=== PATIENT | male | born 1980 | race African-American/Black ===

== ENCOUNTER → 2019-07-22 | Outpatient (CLI) | payer OTHER ==
[~2019-07-22] MED LIST: CYCL10TA2 PO; GABA600T7 PO; HYDR-2761 PO; MELO15TA23 PO
--- NOTE | 2019-07-22 22:59 | PAIN ---
DATE OF SERVICE: 07/22/2019 INITIAL CONSULTATION FOR PAIN CLINIC CHIEF COMPLAINT: Low back and left lower extremity pain. HISTORY OF PRESENT ILLNESS: This is a 39-year-old male who presents with history of pain in low back and left lower extremity for about 10 years. 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 The patient reports that he is doing stretching exercises, doing strengthening on his own. Reports the pain is in the low back and into the left lower extremity, mostly in the anterior groin and posterior gluteus and low back radiating to the lateral thigh and medial lower leg as well. The patient reports it is constant, sharp, stabbing, throbbing, shooting with numbness sensation into the leg, intermittent in intensity, worse with activity with some fatigability of the left leg as well, but not on the right. The patient reports it awakens him up several times a night from sleep, does not affect his bowel or bladder control, but does affect his ability to walk with significant fatigability. The patient has been taking cyclobenzaprine, hydrocodone, meloxicam, as well as gabapentin, all of which do decrease the pain, but only minimally. The patient reports no loss of motor function, but he has again tired sensation in the left leg. The patient rates his disability from 0-10, 10 being the worst, is a 10 with family, home responsibilities, recreation, social activity, occupation, sexual behavior, self-care, and life support activities. The patient did have a CT scan of the lumbar spine showing a bulging disk at L4-L5 with central canal narrowing and bilateral neural foraminal stenosis. MRI was ordered and is pending at the time of dictation. PAST MEDICAL HISTORY: Significant for arthritis and gout. Otherwise, the patient has been in good health with some minor hearing loss. PREVIOUS SURGERY: Includes left foot surgery in 2016, a vasectomy in 2014. CURRENT MEDICATIONS: Include cyclobenzaprine, hydrocodone, meloxicam, gabapentin. ALLERGIES: The patient has no known medical allergies. SOCIAL HISTORY: The patient does not smoke; drinks alcohol occasionally, maybe once a month; is and lives with his spouse, lives locally in [place], [place]. 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 FAMILY HISTORY: Significant for no major medical problems or conditions that he is aware of. REVIEW OF SYSTEMS: The patient's review of systems is positive for those items mentioned in history of present illness. All systems reviewed and otherwise negative. It is complete, full, and well documented on the patient's chart. PHYSICAL EXAMINATION: VITAL SIGNS: The patient's blood pressure is 132/93, pulse 79, respirations 18, temperature 98.0 degrees Fahrenheit, height is 73 inches, weighs 197 pounds. GENERAL: The patient is awake, alert, oriented, appropriate, very pleasant demeanor. HEENT: Shows normocephalic, atraumatic. Extraocular movements are intact and symmetrical. Oral cavity: Mucous membranes moist and pink. Dentition is intact. NECK: Shows anterior throat supple without palpable lymphadenopathy noted. Swallow reflex symmetrical. Neck shows full rotational motion of the cervical spine without difficulty. CHEST: Shows normal on inspection. Breath sounds clear to auscultation bilaterally. HEART: Shows S1, S2 clear. No murmurs auscultated. ABDOMEN: Soft, nontender, nondistended. No palpable organomegaly is noted. No rebound or guarding demonstrated. BACK: Shows spine grossly in the midline. Normal-appearing thoracic kyphosis and lumbar lordotic curvature. Lumbar paraspinous muscle shows symmetrical on inspection; on palpation shows some moderate tenderness diffusely, but only diffusely in the lower lumbar distribution on the left side only without trigger points, without atrophy or hypertrophy. No asymmetry. No tenderness over the spinous processes, sacrum, or sacroiliac regions with palpation. The patient's back shows good rotational motion both laterally greater than 10 degrees right and left as well as extension greater than 10 degrees, forward flexion 45 degrees without pain reported. EXTREMITIES: Lower extremities show deep tendon reflexes 2+ in the patellar, 1+ tendo-calcaneus tendons. Motor exam is strong with approximately 4 on a scale of 5 with left dorsiflexion, extension; 5/5 on the right. Peripheral pulses are 1+ posterior tibial. Lower extremities are warm and dry to touch, equal in color and appearance. No peripheral edema is noted bilaterally. The patient shows a negative straight leg raise bilaterally. Gaenslen's and William's maneuvers are negative as well. The patient is able to stand, stand on his toes without significant difficulty or loss of balance, has a normal-appearing gait for short distance in the office today, not using any assistive device, such as canes or walkers to ambulate. SKIN: Shows warm and dry, good turgor. No edema. No sores, rashes, or bruising throughout. IMPRESSION: 1. This is a 39-year-old male with approximately 10-year history of increasing pain, low back, left lower extremity in a radicular fashion as noted. 2. Arthritis. 3. MRI scan of lumbar spine as noted. PLAN: Options were discussed with the patient, including conservative medical management, physical therapies, interventional techniques, and he would like to proceed with interventional techniques. We discussed a lumbar epidural steroid injection using description as well as anatomical models to describe the procedure. The patient will wait for preauthorization with his insurance provider. In the meantime, we will try Medrol Dosepak. The patient was given instruction as well as side effects to be aware of with the medication. We will have him return once this is completed and a preauthorization for lumbar epidural steroid injection at that time at the L4-L5 level, translaminar approach. FAYE RESTREPO MD DR: MILLI/aide JOB#: [id number] / [id number]
== END | disposition home or self-care (01) ==
LOC: PNCL 08:19
PROVIDERS: ATTEND Anesthesiology
DX: M79.605 Pain in left leg (principal); M54.5 Low back pain; M40.294 Other kyphosis, thoracic region; M40.46 Postural lordosis, lumbar region; M19.90 Unspecified osteoarthritis, unspecified site; M10.9 Gout, unspecified; Z79.891 Long term (current) use of opiate analgesic; Z79.899 Other long term (current) drug therapy
CPT/HCPCS: G0463

== ENCOUNTER → 2019-08-02 | Outpatient (CLI) | payer OTHER ==
[~2019-08-02] MED LIST changes: +IOHEXOL 180 MG/ML 10 ML VIAL. ONE; +methylPREDNISolone ACETATE 40 MG/ML VIAL. ONE; +methylPREDNISolone ACETATE 80 MG/ML VIAL. ONE
--- NOTE | 2019-08-02 10:52 | PAIN ---
DATE OF SERVICE: 08/02/2019 PROGRESS NOTE FOR PAIN CLINIC DIAGNOSES: Lumbar radiculopathy with lumbar degenerative disk disease. HISTORY OF PRESENT ILLNESS: The patient is a 39-year-old male, who returns for followup status post preauthorization and initial evaluation for lumbar epidural steroid injection. The patient reports still significant pain in low back and left lower extremity, posterior gluteus, lateral thigh, lateral anterior thigh, medial lower leg on the left side only, worse with walking, standing, changing positions. The patient reports tingling, stabbing, aching, sharp, dull, tight, shooting, radiating in the left leg. The patient was awaiting preauthorization, he has obtained that now, would like to proceed. The patient describes his pain over the past week is a 10 on a scale of 10 at its worst, 8 on average and 8 at its least and is an 8 today. The patient reports no new motor or sensory deficits, no new bowel or bladder incontinence, still better with sitting or lying down, it does not awaken him from sleep at night. PHYSICAL EXAMINATION: VITAL SIGNS: The patient's blood pressure 126/62, pulse 80, respirations are 16, temperature 97.5 degrees Fahrenheit. Height is 73 inches, weight is 202 pounds. GENERAL: The patient is awake, alert, oriented, appropriate, very pleasant demeanor. HEENT: Shows normocephalic, atraumatic. Extraocular movements are intact and symmetrical. Oral cavity: Mucous membranes moist and pink; dentition is intact. NECK: Shows anterior throat supple without palpable lymphadenopathy noted. Swallow reflex symmetrical. CHEST: Shows normal on inspection. Breath sounds clear to auscultation bilaterally. HEART: Shows S1, S2 clear. No murmurs auscultated. ABDOMEN: Soft, nontender and nondistended. BACK: Shows spine grossly in the midline. Lumbar paraspinous muscle shows symmetrical on inspection, with palpation shows some moderate tenderness diffusely bilaterally, but only diffusely without radiation. EXTREMITIES: The patient's lower extremities show deep tendon reflexes 2+ in the patellar, 1+ in the tendo-calcaneus tendons. Motor exam is strong with 4 on a scale of 5 with left dorsiflexion and extension, 5/5 on the right. Peripheral pulses are 1+ posterior tibial. No peripheral edema is noted. Options were discussed with the patient. The patient's old chart was reviewed as his current medication regimen updated. Current review of systems updated today as well. We will proceed with lumbar epidural steroid injection today with fluoroscopic guidance. Risks were again discussed including, but not limited to bleeding, infection, possibility of epidural hematoma, subsequent neurologic compromise, dural puncture, headaches, spinal cord and/or nerve damage, side effects of steroid medication and poor results regarding pain control. The patient understands and wishes to proceed. The patient will return to clinic in approximately 2 weeks for followup. He was counseled as to return appointment, activity level and side effects to be aware of. DIAGNOSIS: Lumbar radiculopathy with lumbar degenerative disk disease. PROCEDURE: Lumbar epidural steroid injection, translaminar approach, with C-arm fluoroscopic guidance under sterile prep and drape using local anesthetic. MEDICATIONS INJECTED: Total of 120 mg Depo-Medrol plus 10 mL of preservative-free normal saline and 2 mL of Isovue for contrast. CONDITION AT DISCHARGE: Stable. The patient tolerated the procedure well, had no complications. FAYE RESTREPO MD DR: MILLI/aide JOB#: [id number] / [id number]
== END ==
LOC: PNCL 07:37
PROVIDERS: ATTEND Anesthesiology
DX: M51.16 Intervertebral disc disorders with radiculopathy, lumbar region (principal)
CPT/HCPCS: 62323; J1030; J1040; Q9965

== ENCOUNTER → 2019-10-06 | Outpatient (CLI) | payer OTHER ==
--- NOTE | 2019-10-06 12:22 | PAIN ---
DATE OF SERVICE: 10/06/2019 PROGRESS NOTE FOR PAIN CLINIC DIAGNOSES: Lumbar radiculopathy with lumbar degenerative disk disease. HISTORY OF PRESENT ILLNESS: The patient is a 39-year-old male who returns for followup status post lumbar epidural steroid injection x 1. The patient reports about 50% improvement from first 2 months, the pain has been returning now in the low back and left hip, posterior gluteus, posterolateral thigh, lateral anterior thigh, medial thigh, sometimes it is in the groin as well in the medial knee. The patient reports it is aching, sharp, dull, tight, shooting, radiating, becoming more constant with time, initially was doing much better with distance walking, doing work activities, home activities, increased distance walking with much more comfort and the patient reports it is still better without waking up from sleep at night, it is better with sitting or lying down, worse with walking, standing, changing positions. The patient continues to do exercises, he is working out, he has been running with good relief and good pain control until the last week or so. The patient reports the pain is returning it is now 5 on a scale of 10 at its worst, 5 on average, 1 at its least and is a 5 today. The patient reports no new motor or sensory deficits, no new bowel or bladder incontinence or other complaints. PHYSICAL EXAMINATION: VITAL SIGNS: The patient's blood pressure 133/76, pulse 74, respirations are 16, temperature 97.7 degrees Fahrenheit, weight is 201 pounds. GENERAL: The patient is awake, alert, oriented, appropriate, very pleasant demeanor. HEENT: Shows normocephalic, atraumatic. Extraocular movements are intact and symmetrical. Oral cavity: Mucous membranes moist and pink. Dentition is intact. NECK: Shows anterior throat supple without palpable lymphadenopathy noted. Swallow reflex symmetrical. CHEST: Shows normal on inspection. Breath sounds are clear to auscultation bilaterally. HEART: Shows S1, S2 clear. No murmurs auscultated. ABDOMEN: Soft, nontender, nondistended. No palpable organomegaly is noted. No rebound or guarding demonstrated. BACK: Shows spine grossly in the midline. Normal appearing thoracic kyphosis and lumbar lordotic curvature. Lumbar paraspinous muscle shows symmetrical on inspection, on palpation shows some moderate tenderness diffusely bilaterally, but only diffusely without significant radiation. EXTREMITIES: The patient's lower extremities show deep tendon reflexes are 2+ in the patellar, 1+ tendo-calcaneus tendons. Motor exam is strong with 4/5 on the left dorsiflexion, extension, 5/5 on the right. Peripheral pulses are 1+ posterior tibia. No peripheral edema is noted bilaterally. Options were discussed with the patient. The patient's old chart was reviewed as his current medication regimen updated. Current review of systems updated today as well. We will proceed with a second in a series of lumbar epidural steroid injection today with fluoroscopic guidance. Risks were again discussed including, but not limited to bleeding, infection, possibility of epidural hematoma, subsequent neurologic compromise, dural puncture, headaches, spinal cord and/or nerve damage, side effects of steroid medication and poor results regarding pain control. The patient understands and wished to proceed. The patient will return to clinic in approximately 2 weeks for followup. He was counseled on return appointment, activity level and side effects to be aware of. DIAGNOSIS: Lumbar radiculopathy with lumbar degenerative disk disease. PROCEDURE: Lumbar epidural steroid injection, translaminar approach L4-L5 level using C-arm fluoroscopic guidance under sterile prep and drape using local anesthetic. MEDICATION INJECTED: A total of 120 mg Depo-Medrol plus 10 mL of preservative-free normal saline and 2 mL of contrast. CONDITION AT DISCHARGE: Stable. The patient tolerated the procedure well, had no complications. FAYE RESTREPO MD DR: MILLI/aide JOB#: [id number] / [id number]
== END | disposition home or self-care (01) ==
LOC: PNCL 07:34
PROVIDERS: ATTEND Anesthesiology
DX: M51.16 Intervertebral disc disorders with radiculopathy, lumbar region (principal); Z98.890 Other specified postprocedural states
CPT/HCPCS: 62323; J1030; J1040; Q9965

== ENCOUNTER → 2020-01-13 | Outpatient (CLI) | payer OTHER ==
--- NOTE | 2020-01-13 15:15 | PAIN ---
DATE OF SERVICE: 01/13/2020 PROGRESS NOTE FOR PAIN CLINIC DIAGNOSIS: Lumbar radiculopathy with lumbar degenerative disk disease. HISTORY OF PRESENT ILLNESS: The patient is a 39-year-old male who returns for followup, status post lumbar epidural steroid injection x 2, last seen in 12/06/2018. The patient did very well about 100% improvement until about 3 weeks ago. The patient reports the pain is returning in the low back, into the left lower extremity, still minor, but is still present in the posterior gluteus, posterolateral thigh, lateral anterior thigh, anterior groin on the left side, anterior medial thigh on the left, into the lower leg just below the knee. The patient reports it is worse with walking, standing, changing positions, still not severe, but significant. The patient reports it is an 8 on a scale of 10 at its worst over the past week, 5 on average, 2 at its least and is a 2 today. The patient reports it is aching, sharp, shooting, tingling, burning, stabbing, radiating, becoming more constant with activity, better with sitting or lying down. He is sleeping better at night, does not awaken him from sleep. The patient reports no new motor or sensory deficits, no new bowel or bladder incontinence or other complaints. PHYSICAL EXAMINATION: VITAL SIGNS: The patient's blood pressure 148/78, pulse 78, respirations 16, temperature is 97.3 degrees Fahrenheit, weight is 207 pounds. GENERAL: The patient is awake, alert, oriented, appropriate, very pleasant demeanor. HEENT: Shows normocephalic, atraumatic. Extraocular movements are intact and symmetrical. Oral cavity shows mucous membranes moist and pink. Dentition is intact. NECK: Shows anterior throat supple without palpable lymphadenopathy noted. Swallow reflex symmetrical. CHEST: Shows normal on inspection. Breath sounds are clear bilaterally. HEART: Shows S1, S2 clear. No murmurs auscultated. ABDOMEN: Soft, nontender, nondistended. No palpable organomegaly is noted. No rebound or guarding demonstrated. BACK: Shows spine grossly in the midline. Normal-appearing thoracic kyphosis and lumbar lordotic curvature. Lumbar paraspinous muscle shows symmetrical on inspection with palpation shows some moderate tenderness diffusely bilaterally, but only diffusely without significant radiation. The patient shows good rotational motion of lumbar spine, both laterally as well as extension and flexion without difficulty. EXTREMITIES: Lower extremities show deep tendon reflexes at 2+ in the patellar, 1+ tendo-calcaneus tendons. Motor exam is approximately 4 on a scale of 5 on the left and 5/5 on the right. Peripheral pulses are 1+ posterior tibia. No peripheral edema bilaterally. Options were discussed with the patient. The patient's old chart was reviewed as his current medication regimen updated. Current review of systems updated today as well. We will proceed with a third in the series of lumbar epidural steroid injection today with fluoroscopic guidance. Risks were again discussed including, but not limited to bleeding, infection, possibility of epidural hematoma, subsequent neurological compromise, dural puncture, headaches, spinal cord and/or nerve damage, side effects of steroid medication and poor results regarding pain control. The patient understands and wished to proceed. The patient will return to clinic in approximately 2 weeks for followup. He was counseled on return appointment, activity level and side effects to be aware of. DIAGNOSIS: Lumbar radiculopathy with lumbar degenerative disk disease. PROCEDURE: Lumbar epidural steroid injection, translaminar approach at L4-L5 level using C-arm fluoroscopic guidance under sterile prep and drape using local anesthetic. MEDICATION INJECTED: A total of 120 mg Depo-Medrol plus 10 mL of preservative-free normal saline and 2 mL of contrast. CONDITION AT DISCHARGE: Stable. The patient tolerated procedure well, had no complications. FAYE RESTREPO MD DR: MILLI/aide JOB#: [id number] / [id number]
== END ==
LOC: PNCL 08:17
PROVIDERS: ATTEND Anesthesiology
DX: M51.16 Intervertebral disc disorders with radiculopathy, lumbar region (principal)
CPT/HCPCS: 62323; J1030; J1040; Q9965